=== PATIENT | male | born 2000 | race Caucasian/White ===

== ENCOUNTER → 2018-01-08 17:30 | Outpatient (CLI) | payer OTHER, SELFPAY | PROVIDERS: Family Provider Family Medicine; PCP Family Medicine; Visit Provider Physician Assistant | DX: J02.9 Acute pharyngitis, unspecified (principal) | CPT/HCPCS: 87070; 87077 ==

== ENCOUNTER 2018-01-22 18:46 | Emergency (ER) | payer OTHER, SELFPAY ==
[2018-01-22 18:48] VITALS: BP 121/68; PULSE 60; RESP 16; TEMP 37.3; O2SAT 99; BMI 19.5
[2018-01-22 18:55] VITALS: BP 121/68; PULSE 60; RESP 16; TEMP 37.3; O2SAT 99; BMI 19.5
--- NOTE | 2018-01-22 19:00 | DI.US.S_ITS ---
PROCEDURE: US ABDOMEN COMPLETE INDICATIONS: RIGHT UPPER QUADRANT PAIN TECHNIQUE: Real-time scanning was performed of the abdominal and retroperitoneal organs, with image documentation. COMPARISON: None. FINDINGS: Liver: Liver is normal in size and homogenous increased in echotexture. Right hepatic lobe measures 16.8 cm. Gallbladder: Gallbladder appears contracted. No pericholecystic fluid. Negative sonographic Arnold's sign. Biliary ducts: Intrahepatic bile ducts are non-dilated. Extrahepatic bile duct caliber measures 4 mm. Normal is 6-7 mm or less in diameter, or 10 mm or less post-cholecystectomy. Pancreas: Visualized portions of the pancreatic head are sonographically normal. Remainder of the pancreas is not seen on this exam due to overlying bowel gas. Spleen: Spleen is normal in size and homogeneous in echotexture. Kidneys: Kidneys are normal in size and echotexture. Right kidney measures 11.7 cm long; left kidney measures 11.8 cm long. No hydronephrosis or nephrolithiasis. No solid masses. Aorta: Proximal abdominal aorta measures 1.7 cm. Mid abdominal aorta measures 1.2 cm. Distal abdominal aorta measures 1.0 cm. Iliacs: Imaged proximal common iliac arteries are normal in caliber. IVC: Intrahepatic inferior vena cava is patent. Miscellaneous: The appendix cannot be identified on this exam. IMPRESSION: #1. Contracted gallbladder, precluding full evaluation of the gallbladder wall. No other ultrasound findings of acute cholecystitis. Consider CT of the abdomen versus nuclear medicine HIDA scan if there is continued clinical concern for acute cholecystitis. #2. Increased hepatic echogenicity, which can be seen with hepatic steatosis, fibrosis, and/or hepatitis. #3. The appendix cannot be identified on this exam. Appendicitis is not excluded by this exam. Dictated by: Jose Marsh M.D. on 01/22/2018 at 21:43 Approved by: Jose Marsh M.D. on 01/22/2018 at 21:48
--- NOTE | 2018-01-22 19:10 | ED.ABDPAIN ---
HPI - Abdominal Pain General Chief Complaint: Abdominal Pain Stated Complaint: states sharp pains right side abdomen Time Seen by Provider: 01/22/18 18:56 Source: patient Mode of arrival: ambulatory Limitations: no limitations History of Present Illness HPI narrative: 17-year-old otherwise healthy male, nonsmoker presents with a chief complaint of epigastric and right upper quadrant pain gradually worsening since Tuesday. He states this pain started immediately after having a shot of alcohol and may have worsened after other episodes of eating, particularly after a deep fried macaroni cheese ball earlier tonight. His pain may be a bit worse with movement. He denies any radiation of his pain. He has had no fever or chills nor vomiting but has had episodes of nausea. He denies any dysuria, frequency or urgency. He has no testicular pain or swelling MD complaint: abdominal pain Onset (ago): day(s) Pain Consistency: constant Location: RUQ Severity: moderate Quality: cramping and aching Relieving factors: nothing Exacerbating factors: eating Associated symptoms: nausea Related Data Previous Rx's Medication Instructions Recorded naproxen [Naprosyn] 500 mg PO BIDP PRN #30 tab 09/22/16 sumatriptan succinate [Imitrex] 100 mg PO BIDP PRN #10 tab 09/22/16 azithromycin 250 mg tablet See Label Instructions PO .COMPLEX 01/17/18 #6 tab Allergies Allergy/AdvReac Type Severity Reaction Status Date / Time Penicillins [PENICILLINS] Allergy Mild ITCHING Verified 01/22/18 18:48 Review of Systems Review of Systems All systems reviewed & are unremarkable except as noted in HPI and below Constitutional Denies chills, Denies fever(s), Denies lethargy and Denies weakness Eyes Denies change in vision, Denies eye discharge, Denies irritation and Denies loss of vision ENT Ears, Nose, Mouth, and Throat: Denies change in voice, Denies neck pain and Denies sore throat Cardiovascular Denies chest pain, Denies irregular heart rhythm, Denies lightheadedness, Denies palpitations, Denies dyspnea, Denies dyspnea on exertion and Denies orthopnea Respiratory Denies cough, Denies dyspnea, Denies dyspnea on exertion and Denies wheezing Gastrointestinal Gastrointestinal: Reports abdominal pain, Denies change in bowel habits, Denies diarrhea, Reports nausea and Denies vomiting Genitourinary Denies hematuria, Denies flank pain, Denies urinary incontinence and Denies urinary urgency Musculoskeletal Denies neck pain Integumentary/Breasts Denies pruritus, Denies erythema, Denies rash and Denies wounds Neurologic Denies confusion, Denies loss of vision and Denies weakness Psychiatric Denies anxiety, Denies confusion, Denies depression, Denies homicidal ideation and Denies suicidal ideation Endocrine Denies palpitations Hematologic/Lymphatic Denies easy bruising Allergic/Immunologic Denies wheezing [facility] Social History Smoking Status: Never smoker Exam Narrative Exam Narrative: GENERAL: This is a well-nourished, well-developed patient, in mild distress. HEAD: Atraumatic. Normocephalic. No temporal or scalp tenderness. EYES: Pupils equal round and reactive. Extraocular motions intact. No scleral icterus. No injection or drainage. ENT: Nose without bleeding, purulent drainage or septal hematoma. Throat without erythema, tonsillar hypertrophy or exudate. Uvula midline. Airway patent. NECK: Trachea midline. No JVD or lymphadenopathy. Supple, nontender, no meningeal signs. CARDIOVASCULAR: Regular rate and rhythm without murmurs, gallops, or rubs. RESPIRATORY: Clear to auscultation. Breath sounds equal bilaterally. No wheezes, rales, or rhonchi. GASTROINTESTINAL: Abdomen soft, tender in the epigastrium and right upper quadrant, nondistended. No hepato-splenomegaly, or palpable masses. No guarding. EXTREMITIES: No clubbing, cyanosis, or edema. No joint tenderness, effusion, or edema noted. BACK: Nontender without deformity or crepitance. No flank tenderness. NEURO: AOx3. SKIN: No rash or erythema. Initial Vital Signs Initial Vital Signs: Vital Signs Temperature 99.1 F 01/22/18 18:48 Pulse Rate 60 01/22/18 18:48 Respiratory Rate 16 01/22/18 18:48 Blood Pressure 121/68 01/22/18 18:48 Pulse Oximetry 99 01/22/18 18:48 Course Orders Ordered: ED Orders 01/22/18 18:26 Complete Blood Count AUTO DIFF Stat Comprehensive Metabolic Panel Stat Lipase Stat 01/22/18 19:00 US abdomen complete Stat Discontinued Medications Hydrocodone Bitart/Acetaminophen (Vicodin Prepack) 1 bottle MISC SEEINSTR ONE Stop: 01/22/18 21:07 Last Admin: 01/22/18 21:21 Dose: 1 bottle Sodium Chloride (Normal Saline 0.9%) 1,000 mls @ 1,000 mls/hr IV BOLUS ONE Stop: 01/22/18 19:58 Last Infusion: 01/22/18 20:31 Dose: 0 mls/hr Admin: 01/22/18 19:33 Dose: 1,000 mls/hr Ondansetron HCl (Zofran) 4 mg IV NOW ONE Stop: 01/22/18 19:00 Last Admin: 01/22/18 19:33 Dose: 4 mg Ondansetron HCl (Zofran Odt Prepack) 1 bottle MISC SEEINSTR ONE Stop: 01/22/18 21:07 Last Admin: 01/22/18 21:21 Dose: 1 bottle Pantoprazole Sodium (Protonix) 40 mg IV NOW ONE Stop: 01/22/18 19:00 Last Admin: 01/22/18 19:33 Dose: 40 mg Vital Signs - 8 hr 01/22/18 18:48 01/22/18 18:55 01/22/18 20:19 Temperature 99.1 F 99.1 F Pulse Rate 60 60 65 Respiratory Rate 16 16 16 Blood Pressure 121/68 121/68 Blood Pressure [Left Arm] 122/60 Pulse Oximetry 99 99 98 01/22/18 21:16 Temperature Pulse Rate 55 L Respiratory Rate 14 Blood Pressure Blood Pressure [Left Arm] 137/63 Pulse Oximetry 96 MDM - Abdominal Pain Differential Diagnosis Differential diagnosis: Likely abdominal pain, acute appendicitis, calculus of kidney, gastroenteritis, pancreatitis, small bowel obstruction and other (Gallbladder disease) Medical Records Attestation: I reviewed the patient's medical records. Lab Data Attestation: I reviewed the patient's lab results. Result diagrams: 01/22/18 18:26 01/22/18 18:26 Lab Results 01/22/18 01/22/18 Range/Units 18:26 18:26 WBC 11.7 H (4.5-11.0) X10^3/uL RBC 4.84 (4.5-5.9) X10^6/uL Hgb 15.8 (13.5-17.5) g/dL Hct 44.5 (41-53) % MCV 91.9 (80-100) fL MCH 32.6 (26-34) PG MCHC 35.5 (30-36) % RDW 12.9 (11.6-14.8) % Plt Count 228 (150-400) X10^3/uL Neut % (Auto) 69.9 (50-75) % Lymph % (Auto) 20.4 L (25-40) % [place] % (Auto) 5.9 (3-14) % Eos % (Auto) 3.3 (2-4) % Baso % (Auto) 0.5 (0-2) % Neut # (Auto) 8200 H (4409-9640) /uL Sodium 145 (137-145) mmol/L Potassium 3.8 (3.4-5.1) mmol/L Chloride 104 (98-107) mmol/L Carbon Dioxide 27 (22-32) mmol/L BUN 19 (9-20) mg/dL Creatinine 0.80 (0.66-1.25) mg/dL Estimated GFR > 60.0 (>60) mL/min BUN/Creatinine Ratio 23.8 H (6-22) Glucose 103 H (70-100) mg/dL Calcium 9.5 (8.4-10.2) mg/dL Total Bilirubin 0.5 (0.2-1.3) mg/dL AST 24 (17-59) IU/L ALT 18 L (21-72) IU/L Alkaline Phosphatase 53 (38-126) U/L Total Protein 7.6 (6.3-8.2) g/dL Albumin 4.6 (3.5-5.0) g/dL Globulin 3.0 (1.7-4.1) g/dL Albumin/Globulin Ratio 1.5 (1.0-2.8) Lipase 48 (23-300) U/L Imaging Data US - abdomen: Radiologist's impression: [address] [address] Ultrasound Report Signed Patient: Pancho Gabriel RMR#: [id number] : 2000Acct:[id number] Age/Sex: 17 / MDate of Service: 01/22/18 Loc: ED Accession Number: [id number] Procedure: US abdomen complete Ordering Provider: [place],Alex D.O. PROCEDURE: US ABDOMEN COMPLETE INDICATIONS: RIGHT UPPER QUADRANT PAIN TECHNIQUE: Real-time scanning was performed of the abdominal and retroperitoneal organs, with image documentation. COMPARISON: None. FINDINGS: Liver: Liver is normal in size and homogenous increased in echotexture. Right hepatic lobe measures 16.8 cm. Gallbladder: Gallbladder appears contracted. No pericholecystic fluid. Negative sonographic Arnold's sign. Biliary ducts: Intrahepatic bile ducts are non-dilated. Extrahepatic bile duct caliber measures 4 mm. Normal is 6-7 mm or less in diameter, or 10 mm or less post-cholecystectomy. Pancreas: Visualized portions of the pancreatic head are sonographically normal. Remainder of the pancreas is not seen on this exam due to overlying bowel gas. Spleen: Spleen is normal in size and homogeneous in echotexture. Kidneys: Kidneys are normal in size and echotexture. Right kidney measures 11.7 cm long; left kidney measures 11.8 cm long. No hydronephrosis or nephrolithiasis. No solid masses. Aorta: Proximal abdominal aorta measures 1.7 cm. Mid abdominal aorta measures 1.2 cm. Distal abdominal aorta measures 1.0 cm. Iliacs: Imaged proximal common iliac arteries are normal in caliber. IVC: Intrahepatic inferior vena cava is patent. Miscellaneous: The appendix cannot be identified on this exam. IMPRESSION: #1. Contracted gallbladder, precluding full evaluation of the gallbladder wall. No other ultrasound findings of acute cholecystitis. Consider CT of the abdomen versus nuclear medicine HIDA scan if there is continued clinical concern for acute cholecystitis. #2. Increased hepatic echogenicity, which can be seen with hepatic steatosis, fibrosis, and/or hepatitis. #3. The appendix cannot be identified on this exam. Appendicitis is not excluded by this exam. Dictated by: Jose Marsh M.D. on 01/22/2018 at 21:43 Approved by: Jose Marsh M.D. on 01/22/2018 at 21:48 MDM Narrative Medical decision making narrative: Pancreatitis consider given epigastric pain, worse with food and alcohol and temporal proximity to alcohol ingestion, labs and imaging with suggest otherwise Gallbladder disease considered given worsening with eating and palpation in the right upper quadrant but labs suggest no cholecystitis, choledocholithiasis, ultrasound shows only a contracted gallbladder Also considered atypical presentation of appendicitis but 5 days in with no fever and atypical physical exam findings make this less likely Lengthy bedside discussion with patient regarding further testing with a CT scan versus discharge and close follow-up including prompt return for worsening symptoms, patient verbalizes understanding and had all questions answered to his apparent satisfaction Discharge Plan Departure Patient Disposition: Home Clinical Impression: Abdominal pain Discharge Date/Time: 01/22/18 21:23 Interventions: ED Discharge Assessment Last Done: 01/22/18 21:23 Instructions: DI for Abdominal Pain-Adult Activity Restrictions/Additional Instructions: 1. Drink plenty of fluids with frequent small sips. 2. For the next 24 hours a clear liquid diet is advised. After that please employ a brat diet which would include bananas, rice, apples, toast. 3. Please take medications as directed. 4. Please follow-up in 24-48 hours For repeat examination and likely repeat of labs with a possible addition of a CT scan of her abdomen. 5. Please return to the emergency Department immediatley for any worsening or persistent symptoms, such as increasing pain or fever. Prescriptions: No Action sumatriptan succinate [Imitrex] 100 MG tablet 100 mg PO BIDP PRNQty: 10 RF: 0 naproxen [Naprosyn] 500 MG tablet 500 mg PO BIDP PRNQty: 30 RF: 1 azithromycin 250 mg tablet See Label Instructions PO .COMPLEX Qty: 6 RF: 0 Referrals: Bishnu Barrios MD [Primary Care Provider] -
[2018-01-22] MEDS: SODIUM CHLORIDE 0.9% 1,000 ML 1000 ML IV (19:33)
[2018-01-22] MEDS: ONDANSETRON 4 MG/2 ML INJ IV (19:33)
[2018-01-22] MEDS: PANTOPRAZOLE 40 MG VIAL IV (19:33)
[2018-01-22 19:38] LABS: Add Manual Diff / Slide Review NO; Basophils Percent Auto 0.5 % (0-2); Eosinophils Percent Auto 3.3 % (2-4); Hematocrit 44.5 % (41-53); Hemoglobin 15.8 g/dL (13.5-17.5); Lymphocytes Percent Auto 20.4 % (25-40); Mean Corpuscular HGB Conc 35.5 % (30-36); Mean Corpuscular Hemoglobin 32.6 PG (26-34); Mean Corpuscular Volume 91.9 fL (80-100); Monocytes Percent Auto 5.9 % (3-14); Neutrophils Absolute Auto 8200 /uL (3000-5900); Neutrophils Percent Auto 69.9 % (50-75); Platelet Count 228 X10^3/uL (150-400); Red Blood Cell Count 4.84 X10^6/uL (4.5-5.9); Red Cell Distribution Width 12.9 % (11.6-14.8); White Blood Cell Count 11.7 X10^3/uL (4.5-11.0)
[2018-01-22 19:56] LABS: Alanine Aminotransferase 18 IU/L (21-72); Albumin 4.6 g/dL (3.5-5.0); Albumin Globulin Ratio 1.5 (1.0-2.8); Alkaline Phosphatase 53 U/L (38-126); Aspartate Aminotransferase 24 IU/L (17-59); BUN Creatinine Ratio 23.8 (6-22); Bilirubin Total 0.5 mg/dL (0.2-1.3); Blood Urea Nitrogen 19 mg/dL (9-20); Calcium 9.5 mg/dL (8.4-10.2); Carbon Dioxide 27 mmol/L (22-32); Chloride 104 mmol/L (98-107); Estimated Glomerular Filt Rate > 60.0 mL/min (>60); Glucose 103 mg/dL (70-100); HEMOLYSIS < 15 (0-50); Lipase 48 U/L (23-300); Potassium 3.8 mmol/L (3.4-5.1); Sodium 145 mmol/L (137-145); Total Protein 7.6 g/dL (6.3-8.2)
[2018-01-22 20:19] VITALS: BP 122/60; PULSE 65; RESP 16; O2SAT 98
[2018-01-22 21:16] VITALS: BP 137/63; PULSE 55; RESP 14; O2SAT 96
[2018-01-22] MEDS: ONDANSETRON 4 MG ODT PREPACK 1 BOTTLE MISC (21:21)
[2018-01-22] MEDS: HYDROCODONE/ACET 5/325 PREPACK 1 BOTTLE MISC (21:21)
--- NOTE | 2018-01-23 02:27 | ED_ITS ---
HPI - Abdominal Pain General Chief Complaint: Abdominal Pain Stated Complaint: states sharp pains right side abdomen Time Seen by Provider: 01/22/18 18:56 Source: patient Mode of arrival: ambulatory Limitations: no limitations History of Present Illness HPI narrative: 17-year-old otherwise healthy male, nonsmoker presents with a chief complaint of epigastric and right upper quadrant pain gradually worsening since Tuesday. He states this pain started immediately after having a shot of alcohol and may have worsened after other episodes of eating, particularly after a deep fried macaroni cheese ball earlier tonight. His pain may be a bit worse with movement. He denies any radiation of his pain. He has had no fever or chills nor vomiting but has had episodes of nausea. He denies any dysuria, frequency or urgency. He has no testicular pain or swelling MD complaint: abdominal pain Onset (ago): day(s) Pain Consistency: constant Location: RUQ Severity: moderate Quality: cramping and aching Relieving factors: nothing Exacerbating factors: eating Associated symptoms: nausea Related Data Previous Rx's Medication Instructions Recorded naproxen [Naprosyn] 500 mg PO BIDP PRN #30 tab 09/22/16 sumatriptan succinate [Imitrex] 100 mg PO BIDP PRN #10 tab 09/22/16 azithromycin 250 mg tablet See Label Instructions PO .COMPLEX 01/17/18 #6 tab Allergies Allergy/AdvReac Type Severity Reaction Status Date / Time Penicillins [PENICILLINS] Allergy Mild ITCHING Verified 01/22/18 18:48 Review of Systems Review of Systems All systems reviewed & are unremarkable except as noted in HPI and below Constitutional Denies chills, Denies fever(s), Denies lethargy and Denies weakness Eyes Denies change in vision, Denies eye discharge, Denies irritation and Denies loss of vision ENT Ears, Nose, Mouth, and Throat: Denies change in voice, Denies neck pain and Denies sore throat Cardiovascular Denies chest pain, Denies irregular heart rhythm, Denies lightheadedness, Denies palpitations, Denies dyspnea, Denies dyspnea on exertion and Denies orthopnea Respiratory Denies cough, Denies dyspnea, Denies dyspnea on exertion and Denies wheezing Gastrointestinal Gastrointestinal: Reports abdominal pain, Denies change in bowel habits, Denies diarrhea, Reports nausea and Denies vomiting Genitourinary Denies hematuria, Denies flank pain, Denies urinary incontinence and Denies urinary urgency Musculoskeletal Denies neck pain Integumentary/Breasts Denies pruritus, Denies erythema, Denies rash and Denies wounds Neurologic Denies confusion, Denies loss of vision and Denies weakness Psychiatric Denies anxiety, Denies confusion, Denies depression, Denies homicidal ideation and Denies suicidal ideation Endocrine Denies palpitations Hematologic/Lymphatic Denies easy bruising Allergic/Immunologic Denies wheezing [facility] Social History Smoking Status: Never smoker Exam Narrative Exam Narrative: GENERAL: This is a well-nourished, well-developed patient, in mild distress. HEAD: Atraumatic. Normocephalic. No temporal or scalp tenderness. EYES: Pupils equal round and reactive. Extraocular motions intact. No scleral icterus. No injection or drainage. ENT: Nose without bleeding, purulent drainage or septal hematoma. Throat without erythema, tonsillar hypertrophy or exudate. Uvula midline. Airway patent. NECK: Trachea midline. No JVD or lymphadenopathy. Supple, nontender, no meningeal signs. CARDIOVASCULAR: Regular rate and rhythm without murmurs, gallops, or rubs. RESPIRATORY: Clear to auscultation. Breath sounds equal bilaterally. No wheezes , rales, or rhonchi. GASTROINTESTINAL: Abdomen soft, tender in the epigastrium and right upper quadrant, nondistended. No hepato-splenomegaly, or palpable masses. No guarding. EXTREMITIES: No clubbing, cyanosis, or edema. No joint tenderness, effusion, or edema noted. BACK: Nontender without deformity or crepitance. No flank tenderness. NEURO: AOx3. SKIN: No rash or erythema. Initial Vital Signs Initial Vital Signs: Vital Signs Temperature 99.1 F 01/22/18 18:48 Pulse Rate 60 01/22/18 18:48 Respiratory Rate 16 01/22/18 18:48 Blood Pressure 121/68 01/22/18 18:48 Pulse Oximetry 99 01/22/18 18:48 Course Orders Ordered: ED Orders 01/22/18 18:26 Complete Blood Count AUTO DIFF Stat Comprehensive Metabolic Panel Stat Lipase Stat 01/22/18 19:00 US abdomen complete Stat Discontinued Medications Hydrocodone Bitart/Acetaminophen (Vicodin Prepack) 1 bottle MISC SEEINSTR ONE Stop: 01/22/18 21:07 Last Admin: 01/22/18 21:21 Dose: 1 bottle Sodium Chloride (Normal Saline 0.9%) 1,000 mls @ 1,000 mls/hr IV BOLUS ONE Stop: 01/22/18 19:58 Last Infusion: 01/22/18 20:31 Dose: 0 mls/hr Admin: 01/22/18 19:33 Dose: 1,000 mls/hr Ondansetron HCl (Zofran) 4 mg IV NOW ONE Stop: 01/22/18 19:00 Last Admin: 01/22/18 19:33 Dose: 4 mg Ondansetron HCl (Zofran Odt Prepack) 1 bottle MISC SEEINSTR ONE Stop: 01/22/18 21:07 Last Admin: 01/22/18 21:21 Dose: 1 bottle Pantoprazole Sodium (Protonix) 40 mg IV NOW ONE Stop: 01/22/18 19:00 Last Admin: 01/22/18 19:33 Dose: 40 mg Vital Signs - 8 hr 01/22/18 18:48 01/22/18 18:55 01/22/18 20:19 Temperature 99.1 F 99.1 F Pulse Rate 60 60 65 Respiratory Rate 16 16 16 Blood Pressure 121/68 121/68 Blood Pressure [Left Arm] 122/60 Pulse Oximetry 99 99 98 01/22/18 21:16 Temperature Pulse Rate 55 L Respiratory Rate 14 Blood Pressure Blood Pressure [Left Arm] 137/63 Pulse Oximetry 96 MDM - Abdominal Pain Differential Diagnosis Differential diagnosis: Likely abdominal pain, acute appendicitis, calculus of kidney, gastroenteritis, pancreatitis, small bowel obstruction and other ( Gallbladder disease) Medical Records Attestation: I reviewed the patient's medical records. Lab Data Attestation: I reviewed the patient's lab results. Result diagrams: 01/22/18 18:26 01/22/18 18:26 Lab Results 01/22/18 01/22/18 Range/Units 18:26 18:26 WBC 11.7 H (4.5-11.0) X10^3/uL RBC 4.84 (4.5-5.9) X10^6/uL Hgb 15.8 (13.5-17.5) g/dL Hct 44.5 (41-53) % MCV 91.9 (80-100) fL MCH 32.6 (26-34) PG MCHC 35.5 (30-36) % RDW 12.9 (11.6-14.8) % Plt Count 228 (150-400) X10^3/uL Neut % (Auto) 69.9 (50-75) % Lymph % (Auto) 20.4 L (25-40) % [place] % (Auto) 5.9 (3-14) % Eos % (Auto) 3.3 (2-4) % Baso % (Auto) 0.5 (0-2) % Neut # (Auto) 8200 H (1759-4015) /uL Sodium 145 (137-145) mmol/L Potassium 3.8 (3.4-5.1) mmol/L Chloride 104 (98-107) mmol/L Carbon Dioxide 27 (22-32) mmol/L BUN 19 (9-20) mg/dL Creatinine 0.80 (0.66-1.25) mg/dL Estimated GFR > 60.0 (>60) mL/min BUN/Creatinine Ratio 23.8 H (6-22) Glucose 103 H (70-100) mg/dL Calcium 9.5 (8.4-10.2) mg/dL Total Bilirubin 0.5 (0.2-1.3) mg/dL AST 24 (17-59) IU/L ALT 18 L (21-72) IU/L Alkaline Phosphatase 53 (38-126) U/L Total Protein 7.6 (6.3-8.2) g/dL Albumin 4.6 (3.5-5.0) g/dL Globulin 3.0 (1.7-4.1) g/dL Albumin/Globulin Ratio 1.5 (1.0-2.8) Lipase 48 (23-300) U/L Imaging Data US - abdomen: Radiologist's impression: [address] [address] Ultrasound Report Signed Patient: Pancho Gabriel RMR#: [id number] : 2000Acct:[id number] Age/Sex: 17 / MDate of Service: 01/22/18 Loc: ED Accession Number: [id number] Procedure: US abdomen complete Ordering Provider: [place],Alex D.O. PROCEDURE: US ABDOMEN COMPLETE INDICATIONS: RIGHT UPPER QUADRANT PAIN TECHNIQUE: Real-time scanning was performed of the abdominal and retroperitoneal organs, with image documentation. COMPARISON: None. FINDINGS: Liver: Liver is normal in size and homogenous increased in echotexture. Right hepatic lobe measures 16.8 cm. Gallbladder: Gallbladder appears contracted. No pericholecystic fluid. Negative sonographic Arnold's sign. Biliary ducts: Intrahepatic bile ducts are non-dilated. Extrahepatic bile duct caliber measures 4 mm. Normal is 6-7 mm or less in diameter, or 10 mm or less post-cholecystectomy. Pancreas: Visualized portions of the pancreatic head are sonographically normal. Remainder of the pancreas is not seen on this exam due to overlying bowel gas. Spleen: Spleen is normal in size and homogeneous in echotexture. Kidneys: Kidneys are normal in size and echotexture. Right kidney measures 11.7 cm long; left kidney measures 11.8 cm long. No hydronephrosis or nephrolithiasis. No solid masses. Aorta: Proximal abdominal aorta measures 1.7 cm. Mid abdominal aorta measures 1.2 cm. Distal abdominal aorta measures 1.0 cm. Iliacs: Imaged proximal common iliac arteries are normal in caliber. IVC: Intrahepatic inferior vena cava is patent. Miscellaneous: The appendix cannot be identified on this exam. IMPRESSION: #1. Contracted gallbladder, precluding full evaluation of the gallbladder wall. No other ultrasound findings of acute cholecystitis. Consider CT of the abdomen versus nuclear medicine HIDA scan if there is continued clinical concern for acute cholecystitis. #2. Increased hepatic echogenicity, which can be seen with hepatic steatosis, fibrosis, and/or hepatitis. #3. The appendix cannot be identified on this exam. Appendicitis is not excluded by this exam. Dictated by: Jose Marsh M.D. on 01/22/2018 at 21:43 Approved by: Jose Marsh M.D. on 01/22/2018 at 21:48 MDM Narrative Medical decision making narrative: Pancreatitis consider given epigastric pain, worse with food and alcohol and temporal proximity to alcohol ingestion, labs and imaging with suggest otherwise Gallbladder disease considered given worsening with eating and palpation in the right upper quadrant but labs suggest no cholecystitis, choledocholithiasis, ultrasound shows only a contracted gallbladder Also considered atypical presentation of appendicitis but 5 days in with no fever and atypical physical exam findings make this less likely Lengthy bedside discussion with patient regarding further testing with a CT scan versus discharge and close follow-up including prompt return for worsening symptoms, patient verbalizes understanding and had all questions answered to his apparent satisfaction Discharge Plan Departure Patient Disposition: Home Clinical Impression: Abdominal pain Discharge Date/Time: 01/22/18 21:23 Interventions: ED Discharge Assessment Last Done: 01/22/18 21:23 Instructions: DI for Abdominal Pain-Adult Activity Restrictions/Additional Instructions: 1. Drink plenty of fluids with frequent small sips. 2. For the next 24 hours a clear liquid diet is advised. After that please employ a brat diet which would include bananas, rice, apples, toast. 3. Please take medications as directed. 4. Please follow-up in 24-48 hours For repeat examination and likely repeat of labs with a possible addition of a CT scan of her abdomen. 5. Please return to the emergency Department immediatley for any worsening or persistent symptoms, such as increasing pain or fever. Prescriptions: No Action sumatriptan succinate [Imitrex] 100 MG tablet 100 mg PO BIDP PRNQty: 10 RF: 0 naproxen [Naprosyn] 500 MG tablet 500 mg PO BIDP PRNQty: 30 RF: 1 azithromycin 250 mg tablet See Label Instructions PO .COMPLEX Qty: 6 RF: 0 Referrals: Bishnu Barrios MD [Primary Care Provider] -
== END 2018-01-22 21:23 | disposition home or self-care (01) ==
PROVIDERS: Emergency Provider Emergency Medicine; Family Provider Family Medicine; PCP Family Medicine
DX: R10.9 Unspecified abdominal pain (principal)
CPT/HCPCS: 36591; 76700; 80053; 83690; 85025; 96361; 96374; 96375; 99283; 99284; C9113; J2405

== ENCOUNTER 2018-01-30 11:08 | Emergency (ER) | payer OTHER, SELFPAY ==
[2018-01-30 11:31] VITALS: BP 119/65; PULSE 51; RESP 18; TEMP 36.7; O2SAT 100
[2018-01-30] MEDS: SODIUM CHLORIDE 0.9% 1,000 ML 1000 ML IV (11:53)
--- NOTE | 2018-01-30 11:54 | DI.CT.S_ITS ---
PROCEDURE: CT ABDOMEN PELVIS W CON INDICATIONS: Right lower quadrant abdominal pain for 2 weeks. TECHNIQUE: After the administration of oral and intravenous contrast, 5 mm thick sections acquired from the diaphragms to the symphysis. 5 mm thick coronal and sagittal reformats were performed. For radiation dose reduction, the following was used: automated exposure control, adjustment of mA and/or kV according to patient size. COMPARISON: None. FINDINGS: Image quality: Excellent. ABDOMEN: Lung bases: Lung bases are clear. Heart size is normal. Solid organs: Liver is normal in size and enhancement. Gallbladder appears normal. Biliary system is non-dilated. Pancreas enhances normally. Spleen is normal in size and enhancement. No adrenal nodules. Kidneys are normal in size and enhancement, without hydronephrosis. Peritoneum and bowel: Stomach, small bowel, and colon loops are normal in caliber and wall thickness. No free fluid or air. Nodes and vessels: No retroperitoneal or mesenteric adenopathy. Aorta and inferior vena cava are normal in caliber. Miscellaneous: No ventral hernias. PELVIS: Genitourinary: Bladder wall thickness is normal. Miscellaneous: No inguinal hernias or adenopathy. At the posterior border of the inferior tip of the cecum what appears to be a normal appendix containing a small amount of contrast can be seen (series 2 image 74). Bones: No suspicious bony lesions. No vertebral body compression fractures. IMPRESSION: A source of right lower quadrant pain is not seen. What appears to be a normal appendix is identified at the inferior posterior border of the cecum containing a small amount of gas and oral contrast. No secondary CT evidence of appendicitis is seen. No bowel inflammation is found. Dictated by: Sukhdeep Wells M.D. on 01/30/2018 at 13:25 Approved by: Sukhdeep Wells M.D. on 01/30/2018 at 13:27
[2018-01-30 11:59] LABS: Add Manual Diff / Slide Review NO; Basophils Percent Auto 0.5 % (0-2); Eosinophils Percent Auto 1.2 % (2-4); Hematocrit 43.6 % (41-53); Hemoglobin 15.3 g/dL (13.5-17.5); Lymphocytes Percent Auto 9.6 % (25-40); Mean Corpuscular HGB Conc 35.1 % (30-36); Mean Corpuscular Hemoglobin 32.6 PG (26-34); Mean Corpuscular Volume 92.8 fL (80-100); Monocytes Percent Auto 4.7 % (3-14); Neutrophils Absolute Auto 9300 /uL (3000-5900); Platelet Count 214 X10^3/uL (150-400); Red Cell Distribution Width 13.1 % (11.6-14.8)
--- NOTE | 2018-01-30 11:59 | ED.ABDPAIN ---
HPI - Abdominal Pain General Chief Complaint: Abdominal Pain Stated Complaint: STOMACH PAIN, ALOT WORSE Time Seen by Provider: 01/30/18 11:38 Source: patient Mode of arrival: ambulatory Limitations: no limitations History of Present Illness HPI narrative: Patient is a 17-year-old male who presents with right lower quadrant pain it has been ongoing since 01/22/2018. He was seen evaluated at that time we have blood work and an ultrasound of her right upper quadrant pain which was negative he did have mild leukocytosis of 11 any was discharged home. He said now the pain is in the right lower quadrant it suddenly got worse he has had decreased appetite no fever or chills. He has extreme pain whenever he moves he feels better when he sits up he denies any injury. He said he was watching TV when it started. It does not really migrate denies any testicular pain or flank pain. He denies nausea or vomiting. MD complaint: abdominal pain Related Data Home Medications Medication Instructions Recorded Confirmed No Known Home Medications 01/30/18 01/30/18 Allergies Allergy/AdvReac Type Severity Reaction Status Date / Time Penicillins [PENICILLINS] Allergy Mild ITCHING Verified 01/30/18 11:51 Review of Systems Review of Systems GENERAL: Denies chills, fatigue, malaise, fever, sweats, travel HEENT: Denies sinus pain, ear pain, sore throat, difficulty swallowing, neck pain RESPIRATORY: Denies dyspnea, cough, wheezing, hemoptysis, sputum. CARDIOVASCULAR: Denies chest pain, palpitations, orthopnea, edema GASTROINTESTINAL: See HPI : Denies dysuria, frequency, incontinence, hematuria, urinary retention, flank pain. MUSCULOSKELETAL: Denies weakness, joint pain, or bony pain SKIN: No rash, no erythema, no pruritus NEUROLOGIC: Denies weakness, dizziness, headache, numbness, change in speech, confusion PSYCHIATRIC: No concerning psychosocial issues. 12 point review of systems is negative except for those stated above and HPI [facility], [facility] Social History Smoking Status: Never smoker Exam Initial Vital Signs Initial Vital Signs: Vital Signs Temperature 98.1 F 01/30/18 11:31 Pulse Rate 51 L 01/30/18 11:31 Respiratory Rate 18 01/30/18 11:31 Blood Pressure 119/65 01/30/18 11:31 Pulse Oximetry 100 01/30/18 11:31 GENERAL: Thin young male in no acute distress HEENT: Head atraumatic,EOMI, pupils reactive, face symmetric, CARDIOVASCULAR: Regular rate and rhythm without murmurs, rubs or gallops. RESPIRATORY: Breath sounds equal bilaterally, no wheezes rales or rhonchi. ABDOMEN: Soft, tender right lower quadrant no guarding or rebound : No CVA tenderness EXTREMITIES: Normal range of motion, no clubbing or edema. Neurovascularly intact NEUROLOGICAL: Alert and oriented x4.Normal gait and speech. SKIN: Warm, dry, no laceration, no petechiae, no rashes or lesions. Course Orders Ordered: ED Orders 01/30/18 11:50 Complete Blood Count AUTO DIFF Stat Comprehensive Metabolic Panel Stat Lipase Stat 01/30/18 11:54 CT abdomen pelvis w con Stat Sodium Chloride (Normal Saline 0.9%) 1,000 mls @ 150 mls/hr IV CONT AMARILIS Last Infusion: 01/30/18 13:00 Dose: 0 mls/hr Admin: 01/30/18 11:53 Dose: 1,000 mls/hr Vital Signs - 8 hr 01/30/18 11:31 01/30/18 12:59 01/30/18 13:55 Temperature 98.1 F Pulse Rate 51 L 55 L 72 Respiratory Rate 18 14 23 Blood Pressure 119/65 Blood Pressure [Left Arm] 155/55 H 139/77 Pulse Oximetry 100 99 100 MDM - Abdominal Pain Lab Data Attestation: I reviewed the patient's lab results. Result diagrams: 01/30/18 11:50 01/30/18 11:50 Lab Results 01/30/18 01/30/18 Range/Units 11:50 11:50 WBC 11.0 (4.5-11.0) X10^3/uL RBC 4.70 (4.5-5.9) X10^6/uL Hgb 15.3 (13.5-17.5) g/dL Hct 43.6 (41-53) % MCV 92.8 (80-100) fL MCH 32.6 (26-34) PG MCHC 35.1 (30-36) % RDW 13.1 (11.6-14.8) % Plt Count 214 (150-400) X10^3/uL Neut % (Auto) 84.0 H (50-75) % Lymph % (Auto) 9.6 L (25-40) % [place] % (Auto) 4.7 (3-14) % Eos % (Auto) 1.2 L (2-4) % Baso % (Auto) 0.5 (0-2) % Neut # (Auto) 9300 H (7583-5870) /uL Sodium 141 (137-145) mmol/L Potassium 3.9 (3.4-5.1) mmol/L Chloride 103 (98-107) mmol/L Carbon Dioxide 27 (22-32) mmol/L BUN 20 (9-20) mg/dL Creatinine 0.80 (0.66-1.25) mg/dL Estimated GFR > 60.0 (>60) mL/min BUN/Creatinine Ratio 25.0 H (6-22) Glucose 101 H (70-100) mg/dL Calcium 9.8 (8.4-10.2) mg/dL Total Bilirubin 0.9 (0.2-1.3) mg/dL AST 25 (17-59) IU/L ALT 19 L (21-72) IU/L Alkaline Phosphatase 46 (38-126) U/L Total Protein 7.9 (6.3-8.2) g/dL Albumin 4.7 (3.5-5.0) g/dL Globulin 3.2 (1.7-4.1) g/dL Albumin/Globulin Ratio 1.5 (1.0-2.8) Lipase 22 L D (23-300) U/L Imaging Data CT scan - abdomen: Radiologist's impression: PROCEDURE: CT ABDOMEN PELVIS W CON INDICATIONS: Right lower quadrant abdominal pain for 2 weeks. TECHNIQUE: After the administration of oral and intravenous contrast, 5 mm thick sections acquired from the diaphragms to the symphysis. 5 mm thick coronal and sagittal reformats were performed. For radiation dose reduction, the following was used: automated exposure control, adjustment of mA and/or kV according to patient size. COMPARISON: None. FINDINGS: Image quality: Excellent. ABDOMEN: Lung bases: Lung bases are clear. Heart size is normal. Solid organs: Liver is normal in size and enhancement. Gallbladder appears normal. Biliary system is non-dilated. Pancreas enhances normally. Spleen is normal in size and enhancement. No adrenal nodules. Kidneys are normal in size and enhancement, without hydronephrosis. Peritoneum and bowel: Stomach, small bowel, and colon loops are normal in caliber and wall thickness. No free fluid or air. Nodes and vessels: No retroperitoneal or mesenteric adenopathy. Aorta and inferior vena cava are normal in caliber. Miscellaneous: No ventral hernias. PELVIS: Genitourinary: Bladder wall thickness is normal. Miscellaneous: No inguinal hernias or adenopathy. At the posterior border of the inferior tip of the cecum what appears to be a normal appendix containing a small amount of contrast can be seen (series 2 image 74). Bones: No suspicious bony lesions. No vertebral body compression fractures. IMPRESSION: A source of right lower quadrant pain is not seen. What appears to be a normal appendix is identified at the inferior posterior border of the cecum containing a small amount of gas and oral contrast. No secondary CT evidence of appendicitis is seen. No bowel inflammation is found. Dictated by: Sukhdeep Wells M.D. on 01/30/2018 at 13:25 MDM Narrative Medical decision making narrative: Patient has minimal leukocytosis, a CT shows no appendicitis. This is likely gas or abdominal muscle wall strain. Recommended GI follow-up if this continues to go on. Discharge Plan Departure Patient Disposition: Home Clinical Impression: Abdominal wall strain Instructions: DI for Abdominal Muscle Strain Activity Restrictions/Additional Instructions: *You have been diagnosed with abdominal wall strain *What to do: Working CT scan today are within normal limits. No evidence of appendicitis. This likely muscle strain *Continue to take medications as directed Motrin 600 mg every 6-8 hours if needed for pain *Follow up with your primary care provider in 2-3 days *Return to ER if you should have persistent vomiting, fever or any new, worsening or concerning symptoms Prescriptions: No Action No Known Home Medications RF: 0 Referrals: Bishnu Barrios MD [Primary Care Provider] - Stand Alone Forms: Work/School Restrictions
[2018-01-30 12:23] LABS: Alanine Aminotransferase 19 IU/L (21-72); Albumin 4.7 g/dL (3.5-5.0); Albumin Globulin Ratio 1.5 (1.0-2.8); Alkaline Phosphatase 46 U/L (38-126); Aspartate Aminotransferase 25 IU/L (17-59); Bilirubin Total 0.9 mg/dL (0.2-1.3); Blood Urea Nitrogen 20 mg/dL (9-20); Calcium 9.8 mg/dL (8.4-10.2); Carbon Dioxide 27 mmol/L (22-32); Chloride 103 mmol/L (98-107); Estimated Glomerular Filt Rate > 60.0 mL/min (>60); Globulin 3.2 g/dL (1.7-4.1); Glucose 101 mg/dL (70-100); HEMOLYSIS < 15 (0-50); Lipase 22 U/L (23-300); Potassium 3.9 mmol/L (3.4-5.1); Sodium 141 mmol/L (137-145); Total Protein 7.9 g/dL (6.3-8.2)
[2018-01-30 12:59] VITALS: BP 155/55; PULSE 55; RESP 14; O2SAT 99
[2018-01-30 13:55] VITALS: BP 139/77; PULSE 72; RESP 23; O2SAT 100
--- NOTE | 2018-02-02 16:21 | PC.NURSE ---
follow up call, n/a
== END 2018-01-30 14:28 | disposition home or self-care (01) ==
PROVIDERS: Emergency Provider Emergency Medicine; PCP Family Medicine
DX: S39.011A Strain of muscle, fascia and tendon of abdomen, initial encounter (principal)
CPT/HCPCS: 36591; 74177; 80053; 83690; 85025; 96360; 99283; 99285

== ENCOUNTER → 2018-09-27 17:17 | Outpatient (CLI) | payer OTHER, SELFPAY ==
[2018-09-27 18:25] LABS: Hematocrit 43.6 % (41-53); Hemoglobin 15.2 g/dL (13.5-17.5); Mean Corpuscular HGB Conc 34.8 % (30-36); Mean Corpuscular Hemoglobin 32.4 PG (26-34); Mean Corpuscular Volume 93.2 fL (80-100); Platelet Count 194 X10^3/uL (150-400); Red Blood Cell Count 4.68 X10^6/uL (4.5-5.9); Red Cell Distribution Width 12.9 % (11.6-14.8); White Blood Cell Count 6.3 X10^3/uL (4.5-11.0)
[2018-09-27 18:34] LABS: Neutrophils Absolute Manual 4284 /uL (3000-5900); Total Cells Counted 100
[2018-09-27 18:35] LABS: RBC Morphology Normal Morphology
[2018-09-27 19:39] LABS: TSH w/ Reflex to FT4 1.63 uIU/mL (0.47-4.68)
== END ==
PROVIDERS: PCP Family Medicine; Visit Provider Family Medicine
DX: R61 Generalized hyperhidrosis (principal); R63.4 Abnormal weight loss
CPT/HCPCS: 36415; 84443; 85025